=== PATIENT | female | born 1975 | race Hispanic/Latino ===

== ENCOUNTER 2019-07-08 12:57 | Emergency (ER) | payer BC ==
[2019-07-08] MEDS ORDERED: SILVER NITRATE 1 APPL TOP ONE (13:44)
[2019-07-08] MEDS ORDERED: LIDOCAINE 1% W/EPI 1:100,000 MDV 20 ML VIAL ONE (13:44)
--- NOTE | 2019-07-08 15:45 | EDPHYS ---
Physician Documentation [facility] Name: Yoli Hunt Age: 44 yrs Sex: Female : 1975 Arrival Date: 07/08/2019 Time: 13:00 Bed 17 Private MD: BRITTANEY Physician Camden Toscano HPI: 07/08 13:42 This 44 yrs old Female presents to ER via Ambulatory with complaints of Wart bhanu on Finger, painful. 13:42 The patient or guardian reports decreased range of motion, pain. The complaints affect bhanu the PIP of left ring finger. Onset: The symptoms/episode began/occurred 1 week(s) ago. Associated signs and symptoms: The patient has no apparent associated signs or symptoms. The patient has not experienced similar symptoms in the past. 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 - Social history:: Smoking status: Patient/guardian denies using tobacco. - Ebola Screening: : No symptoms or risks identified at this time. - Family history:: not pertinent. ROS: 13:42 Constitutional: Negative for fever, chills, and weight loss, Eyes: Negative for injury, bhanu pain, redness, and discharge, ENT: Negative for injury, pain, and discharge, Neck: Negative for injury, pain, and swelling, Cardiovascular: Negative for chest pain, palpitations, and edema, Respiratory: Negative for shortness of breath, cough, wheezing, and pleuritic chest pain, Abdomen/GI: Negative for abdominal pain, nausea, vomiting, diarrhea, and constipation, Back: Negative for injury and pain, : Negative for injury, bleeding, discharge, and swelling, Skin: Negative for injury, rash, and discoloration, Neuro: Negative for headache, weakness, numbness, tingling, and seizure, Psych: Negative for depression, anxiety, suicide ideation, homicidal ideation, and hallucinations, Allergy/Immunology: Negative for hives, rash, and allergies, Endocrine: Negative for neck swelling, polydipsia, polyuria, polyphagia, and marked weight changes, Hematologic/Lymphatic: Negative for swollen nodes, abnormal bleeding, and unusual bruising. 13:42 MS/extremity: Positive for pain, tenderness, of the palmar aspect of middle phalanx of left middle finger. Exam: 13:42 Constitutional: This is a well developed, well nourished patient who is awake, alert, bhanu and in no acute distress. Head/Face: Normocephalic, atraumatic. Eyes: Pupils equal round and reactive to light, extra-ocular motions intact. Lids and lashes normal. Conjunctiva and sclera are non-icteric and not injected. Cornea within normal limits. Periorbital areas with no swelling, redness, or edema. ENT: Nares patent. No nasal discharge, no septal abnormalities noted. Tympanic membranes are normal and external auditory canals are clear. Oropharynx with no redness, swelling, or masses, exudates, or evidence of obstruction, uvula midline. Mucous membranes moist. Neck: Trachea midline, no thyromegaly or masses palpated, and no cervical lymphadenopathy. Supple, full range of motion without nuchal rigidity, or vertebral point tenderness. No Meningismus. Chest/axilla: Normal chest wall appearance and motion. Nontender with no deformity. No lesions are appreciated. Cardiovascular: Regular rate and rhythm with a normal S1 and S2. No gallops, murmurs, or rubs. Normal PMI, no JVD. No pulse deficits. Respiratory: Lungs have equal breath sounds bilaterally, clear to auscultation and percussion. No rales, rhonchi or wheezes noted. No increased work of breathing, no retractions or nasal flaring. Abdomen/GI: Soft, non-tender, with normal bowel sounds. No distension or tympany. No guarding or rebound. No evidence of tenderness throughout. Back: No spinal tenderness. No costovertebral tenderness. Full range of motion. Pelvic Exam: Normal external genitalia. Speculum exam with closed cervical os, no discharge or bleeding noted. Bimanual exam with normal adnexa, no adnexal or cervical motion tenderness. Normal uterus. Female : Normal external genitalia. Skin: Warm, dry with normal turgor. Normal color with no rashes, no lesions, and no evidence of cellulitis. Neuro: Awake and alert, GCS 15, oriented to person, place, time, and situation. Cranial nerves II-XII grossly intact. Motor strength 5/5 in all extremities. Sensory grossly intact. Cerebellar exam normal. Normal gait. Psych: Awake, alert, with orientation to person, place and time. Behavior, mood, and affect are within normal limits. 13:42 Musculoskeletal/extremity: Circulation is intact in all extremities. Sensation intact. Compartment Syndrome exam of affected extremity: is normal. DVT Exam: negative Homans' sign noted on exam, no appreciated bluish discoloration, no erythema, no increased warmth, pain, swelling, tenderness. Vital Signs: 13:12 BP 123 / 78; Pulse 101; Resp 19 S; Temp 97.7(O); Pulse Ox 100% on R/A; Pain 0/10; jl7 14:44 BP 112 / 78; Pulse 94; Resp 16; Temp 98.0(O); Pulse Ox 100% on R/A; mh5 MDM: 13:15 Patient medically screened. [facility] 13:42 Data reviewed: vital signs. [facility] 07/08 14:34 Order name: Hand Left 3 View XRAY; Complete Time: 16:38 [facility] 07/08 13:42 Order name: Suture Tray Setup; Complete Time: 13:55 [facility] 07/08 13:42 Order name: Wound dressing; Complete Time: 16:42 [facility] Administered Medications: 15:50 Drug: Lidocaine-Epinephrine -1%: (1:100,000) 5 ml Volume: 20 ml; Route: Infiltration; ph 16:10 Drug: Silver Nitrate Applicators 1 application Route: Topical; Site: affected area; ph 16:42 Drug: KeFLEX 500 mg Route: PO; ph 16:44 Follow up: Response: No adverse reaction ph 16:43 Drug: [place] 10 mg-325 mg 1 tabs Route: PO; ph 16:44 Follow up: Response: No adverse reaction; Medication administered at discharge. ph 16:44 Drug: Zofran 4 mg Route: PO; ph 16:44 Follow up: Response: No adverse reaction; Medication administered at discharge. ph Disposition: 07/08/19 15:44 Discharged to Home. Impression: Laceration without foreign body of left hand, Pyogenic granuloma. - Condition is Stable. - Discharge Instructions: Laceration Care, Adult, Laceration Care, Adult, [id number]. - Prescriptions for Keflex 500 mg Oral Capsule - take 1 capsule by ORAL route every 6 hours for 10 days; 28 capsule. Tylenol- Codeine #3 300-30 mg Oral Tablet - take 2 tablets by ORAL route every 6 hours As needed; 20 tablet. - Medication Reconciliation Form, Thank You Letter, Antibiotic Education, Prescription Opioid Use form. - Follow up: Private Physician; When: 2 - 3 days; Reason: Recheck today's complaints, Continuance of care, Re-evaluation by your physician. Follow up: Iraj Bridges; When: 2 - 3 days; Reason: Recheck today's complaints, Continuance of care, Re-evaluation by your physician. - Problem is new. - Symptoms have improved. Addendum: 07/29/2019 02:34 Addendum: left ring prepped and dressed. lidocaine with epi 4 cc was injected at the c magdaleno base of the growth. an 11 blade was used to remove the growth.silver nitrate sticks were used to cauterize the base. good hemostasis,good outcome. dressing applied. follow up instructions. Signatures: Dispatcher [employer] EDMS Camden Toscano MD MD cha Hall, Patricia, RN RN Mimi Scott RN RN jl7 Corrections: (The following items were deleted from the chart) 07/08 16:45 15:44 07/08/2019 15:44 Discharged to Home. Impression: Laceration without foreign body ph of left hand; Pyogenic granuloma. Condition is Stable. Discharge Instructions: Laceration Care, Adult, Laceration Care, Adult, [id number]. Prescriptions for Keflex 500 mg Oral Capsule - take 1 capsule by ORAL route every 6 hours for 10 days; 28 capsule, Tylenol-Codeine #3 300-30 mg Oral Tablet - take 2 tablets by ORAL route every 6 hours As needed; 20 tablet. and Forms are Medication Reconciliation Form, Thank You Letter, Antibiotic Education, Prescription Opioid Use. Follow up: Private Physician; When: 2 - 3 days; Reason: Recheck today's complaints, Continuance of care, Re-evaluation by your physician. Follow up: Iraj Bridges; When: 2 - 3 days; Reason: Recheck today's complaints, Continuance of care, Re-evaluation by your physician. Problem is new. Symptoms have improved. bhanu
--- NOTE | 2019-07-08 15:45 | RAD REPORT ---
EXAM DESCRIPTION: RAD - Hand Left 3 View - 07/08/2019 3:06 pm CLINICAL HISTORY: Hand pain, soft tissue mass COMPARISON: None. FINDINGS: No fracture, dislocation or periosteal reaction noted. No acute bone or joint finding seen . Patient has a 10 millimeter oval noncalcified soft tissue mass in the soft tissues along the ventra l and radial side of the third digit middle phalanx level. IMPRESSION: Third digit soft tissue masses detailed. No acute bone or joint finding.
--- NOTE | 2019-07-08 15:45 | ER ---
Nurse's Notes [facility] Name: Yoli Hunt Age: 44 yrs Sex: Female : 1975 Arrival Date: 07/08/2019 Time: 13:00 Bed 17 Private MD: Diagnosis: Laceration without foreign body of left hand;Pyogenic granuloma Presentation: 07/08 13:04 Presenting complaint: Child states: Wart on left ring finger started 2 weeks ago, jl7 started grown 2 days ago, denies pain, reports "It smells nasty.". Transition of care: patient was not received from another setting of care. Onset of symptoms was June 23, 2019. Risk Assessment: Do you want to hurt yourself or someone else? Patient reports no desire to harm self or others. Initial Sepsis Screen: Does the patient meet any 2 criteria? No. Patient's initial sepsis screen is negative. Does the patient have a suspected source of infection? No. Patient's initial sepsis screen is negative. Care prior to arrival: None. 13:04 Method Of Arrival: Ambulatory [facility] 13:04 Acuity: NISHA 4 jl7 Triage Assessment: 13:12 General: Appears in no apparent distress. uncomfortable, Behavior is calm, cooperative, jl7 appropriate for age. Pain: Denies pain. 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 - Social history:: Smoking status: Patient/guardian denies using tobacco. - Ebola Screening: : No symptoms or risks identified at this time. - Family history:: not pertinent. Screenin:18 Abuse screen: Denies threats or abuse. Denies injuries from another. Nutritional ph screening: No deficits noted. Tuberculosis screening: No symptoms or risk factors identified. Fall Risk None identified. Assessment: 14:00 General: Appears in no apparent distress. comfortable, well groomed, Behavior is calm, ph cooperative, appropriate for age. Pain: Complains of pain in palmar aspect of middle phalanx of left middle finger. Neuro: Level of Consciousness is awake, alert, obeys commands, Oriented to person, place, time, situation. Cardiovascular: Capillary refill < 3 seconds in bilateral fingers Patient's skin is warm and dry. Respiratory: Airway is patent Respiratory effort is even, unlabored, Respiratory pattern is regular, symmetrical. Derm: Skin is fragile, Skin is pink, warm \\T\\ dry. 14:00 Derm: growth noted to L ring finger. Musculoskeletal: Circulation, motion, and ph sensation intact. Range of motion: intact in all extremities. 15:00 Reassessment: Patient appears in no apparent distress at this time. Patient and/or ph family updated on plan of care and expected duration. Pain level reassessed. Patient is alert, oriented x 3, equal unlabored respirations, skin warm/dry/pink. 15:50 Reassessment: Patient appears in no apparent distress at this time. Patient and/or ph family updated on plan of care and expected duration. Pain level reassessed. Patient is alert, oriented x 3, equal unlabored respirations, skin warm/dry/pink. ERP at bedside for excision of growth finger, will send to lab for patho, pt tolerating well. Vital Signs: 13:12 BP 123 / 78; Pulse 101; Resp 19 S; Temp 97.7(O); Pulse Ox 100% on R/A; Pain 0/10; jl7 14:44 BP 112 / 78; Pulse 94; Resp 16; Temp 98.0(O); Pulse Ox 100% on R/A; mh5 ED Course: 13:00 Patient arrived in ED. mr 13:08 Triage completed. jl7 13:12 Arm band placed on right wrist. jl7 13:15 Camden Toscano MD is Attending Physician. bhanu 13:54 Key Wetzel, MARY is Primary Nurse. ph 14:44 Patient has correct armband on for positive identification. Bed in low position. Call 5 light in reach. Side rails up X 1. Adult w/ patient. Warm blanket given. Pulse ox on. NIBP on. 15:05 Hand Left 3 View XRAY In Process Unspecified. EDMS 15:44 Iraj Bridges MD is Referral Physician. [facility] 16:18 No provider procedures requiring assistance completed. Patient did not have IV access ph during this emergency room visit. 16:30 Wound care: to growth removed from L ring finger, bleeding controlled, pressure ph dressing applied. Administered Medications: 15:50 Drug: Lidocaine-Epinephrine -1%: (1:100,000) 5 ml Volume: 20 ml; Route: Infiltration; ph 16:10 Drug: Silver Nitrate Applicators 1 application Route: Topical; Site: affected area; ph 16:42 Drug: KeFLEX 500 mg Route: PO; ph 16:44 Follow up: Response: No adverse reaction ph 16:43 Drug: [place] 10 mg-325 mg 1 tabs Route: PO; ph 16:44 Follow up: Response: No adverse reaction; Medication administered at discharge. ph 16:44 Drug: Zofran 4 mg Route: PO; ph 16:44 Follow up: Response: No adverse reaction; Medication administered at discharge. ph Outcome: 15:44 Discharge ordered by . [facility] 16:45 Patient left the ED. ph 16:45 Discharged to home ambulatory, with family. ph 16:45 Condition: good 16:45 Discharge instructions given to patient, Instructed on discharge instructions, follow up and referral plans. medication usage, wound care, Demonstrated understanding of instructions, follow-up care, medications, wound care, Prescriptions given X 2. Signatures: Dispatcher [employer] EDRI Camden Toscano MD MD cha Rivera, Augusta Key Wetzel RN RN ph Martinez, Maria [facility] Mimi Monae RN RN jl7
[2019-07-08] MEDS ORDERED: CEPHALEXIN 250 MG CAP ONE (16:25)
[2019-07-08] MEDS ORDERED: HYDROCODONE/APAP 10/325 TAB ONE (16:41)
[2019-07-08] MEDS ORDERED: ONDANSETRON 4 MG (ODT) TAB ONE (16:41)
[2019-07-08 18:52] VITALS: O2SAT 100
[2019-07-08 18:57] VITALS: BP 128/84; TEMP 98.6
== END 2019-07-08 16:45 | disposition home or self-care (01) ==
LOC: ER 12:57
PROC: 0HBGXZZ Excision of Left Hand Skin, External Approach (ICD-10-PCS; principal; 2019-07-08)
DX: L98.0 Pyogenic granuloma (principal); S61.412A Laceration without foreign body of left hand, initial encounter; X58.XXXA Exposure to other specified factors, initial encounter; Z94.1 Heart transplant status
CPT/HCPCS: 88305; 99284

== ENCOUNTER 2019-09-04 18:13 | Emergency (ER) | payer BC ==
[2019-09-04 19:29] LABS: Absolute Lymphocytes (CBC) 1.1 K/uL (0.7-4.9); Basophils % 0.3 % (0-1.3); Lymphocytes % 17.7 % (15.3-44.8); MPV 8.5 fL (7.6-11.3)
[2019-09-04 19:44] LABS: Potassium 3.4 mmol/L (3.5-5.1)
--- NOTE | 2019-09-04 20:23 | EDPHYS ---
Physician Documentation [facility] Name: Yoli Hunt Age: 44 yrs Sex: Female : 1975 Arrival Date: 09/04/2019 Time: 18:16 Bed 13 Private MD: ED Physician Ceasar Stanley HPI: 09/03 19:24 This 44 yrs old Female presents to ER via Ambulatory with complaints of rn Shortness Of Breath. 19:24 The patient has shortness of breath at rest. Onset: The symptoms/episode began/occurred rn 2 month(s) ago. Duration: The symptoms are intermittent. The patient's shortness of breath is aggravated by nothing, is alleviated by nothing. Severity of symptoms: At their worst the symptoms were mild in the emergency department the symptoms have resolved. The patient has experienced similar episodes in the past. Reports 2-3 months of intermittent episodes of "anxiety" and "depression", went through divorce and heart transplant during same time recently, and since then, not sleeping, feels sad, cries randomly, no appetite. No suicidal ideation. Denies chest pain/abd pain/vomiting/diarrhea. Currently asymptomatic. Came in tonight because felt worse tonight, now resolved. . 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 ca1 Historical: - Allergies: 18:29 allergic to 4 unknown medications; ca1 18:29 Amiodarone; ca1 18:29 citalopram; ca1 18:29 Duloxetine; ca1 18:29 pregabalin; ca1 - Home Meds: 18:37 aspirin 81 mg Oral chew 1 tab once daily [Active]; Calcium Carbonate Oral [Active]; ca1 cholecalciferol (vitamin D3) oral oral [Active]; famotidine 20 mg Oral tab 1 tab every 12 hours [Active]; gabapentin 300 mg oral cap 1 cap nightly [Active]; magnesium oxide 400 mg oral tab [Active]; pravastatin 20 mg oral tab 1 tab once daily [Active]; CellCept 500 mg Oral tab 3 tabs 2 times per day [Active]; Lantus 100 unit/mL Sub-Q soln [Active]; Humalog KwikPen 200 unit/mL (3 mL) subcutaneous inpn [Active]; melatonin Oral [Active]; prednisone miscellaneous powd 2.5 tab daily [Active]; - PMHx: 18:29 heart transplant pt, [facility] in [place], Feb 2019; ca1 - PSHx: 18:29 heart transplant; ca1 - Immunization history:: Adult Immunizations up to date, Flu vaccine is not up to date. - Social history:: Smoking status: Patient denies any tobacco usage or history of. - Family history:: not pertinent. - Hospitalizations: : No recent hospitalization is reported. ROS: 19:24 Constitutional: Negative for fever, chills, and weight loss, Eyes: Negative for injury, rn pain, redness, and discharge, Neck: Negative for injury, pain, and swelling, Cardiovascular: Negative for chest pain, palpitations, and edema, Respiratory: Negative for shortness of breath, cough, wheezing, and pleuritic chest pain, Abdomen/GI: Negative for abdominal pain, nausea, vomiting, diarrhea, and constipation, MS/Extremity: Negative for injury and deformity, Skin: Negative for injury, rash, and discoloration, Neuro: Negative for headache, weakness, numbness, tingling, and seizure. Exam: 19:24 Constitutional: This is a well developed, well nourished patient who is awake, alert, rn and in no acute distress. Head/Face: Normocephalic, atraumatic. Eyes: Pupils equal round and reactive to light, extra-ocular motions intact. Lids and lashes normal. Conjunctiva and sclera are non-icteric and not injected. Cornea within normal limits. Periorbital areas with no swelling, redness, or edema. ENT: MMM Cardiovascular: Regular rate and rhythm. No pulse deficits. Respiratory: Equal bilateral breath sounds. No increased work of breathing, no retractions or nasal flaring. Abdomen/GI: soft, non-tender MS/ Extremity: Pulses equal, no cyanosis. Neurovascular intact. Full, normal range of motion. Equal circumference. Neuro: Awake and alert, GCS 15, oriented to person, place, time, and situation. Cranial nerves II-XII grossly intact. Motor strength 5/5 in all extremities. Sensory grossly intact. Cerebellar exam normal. Psych: Awake, alert, with orientation to person, place and time. Depressed mood, becomes emotional when talking about divorce. Vital Signs: 18:19 BP 132 / 88; Pulse 104; Resp 18 S; Temp 97.3(TE); Pulse Ox 100% on R/A; Weight 75.75 kg ca1 (R); Height 5 ft. 5 in. (165.10 cm) (R); 19:30 BP 106 / 76; Pulse 92; Resp 18; Pulse Ox 99% on R/A; wh 20:30 BP 107 / 77; Pulse 87; Resp 18; Pulse Ox 100% on R/A; wh 18:19 Body Mass Index 27.79 (75.75 kg, 165.10 cm) ca1 MDM: 19:02 Patient medically screened. rn 20:20 Differential diagnosis: anxiety, depression, major depressive episode. Data reviewed: rn vital signs, nurses notes, lab test result(s), EKG, radiologic studies, plain films, and as a result, I will discharge patient. Counseling: I had a detailed discussion with the patient and/or guardian regarding: the historical points, exam findings, and any diagnostic results supporting the discharge/admit diagnosis, lab results, radiology results, the need for outpatient follow up, to return to the emergency department if symptoms worsen or persist or if there are any questions or concerns that arise at home. Special discussion: I discussed with the patient/guardian in detail that at this point there is no indication for admission to the hospital. It is understood, however, that if the symptoms persist or worsen the patient needs to return immediately for re-evaluation. Based on the history and exam findings, there is no indication for further emergent testing or inpatient evaluation. 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 I discussed with the patient/guardian the need to see the primary care provider for further evaluation of the symptoms. I discussed with the patient/guardian the need to see the psychiatrist for further evaluation of the symptoms. ED course: No acute findings related to heart/lungs, no oxygen requirement, seems like major depressive episode from divorce and transplant, does not seem related to transplant. Recommend psychiatry and cardiology f/u for medication given transplant status. . 09/03 19:11 Order name: CBC with Diff; Complete Time: 19:48 rn 09/03 19:11 Order name: Basic Metabolic Panel; Complete Time: 19:48 rn 09/03 19:11 Order name: IV Start; Complete Time: 19:19 rn 09/03 19:11 Order name: XRAY Chest (1 view) rn 09/03 19:11 Order name: EKG; Complete Time: 19:12 rn 09/03 20:33 Order name: Urine Dipstick--Ancillary (enter results) mw2 09/03 19:11 Order name: EKG - Nurse/Tech; Complete Time: 19:20 rn 09/03 19:11 Order name: Urine Dipstick-Ancillary (obtain specimen); Complete Time: 20:32 rn Administered Medications: No medications were administered Disposition: 09/04/19 20:22 Discharged to Home. Impression: Major depressive disorder, single episode, unspecified. - Condition is Stable. - Discharge Instructions: Generalized Anxiety Disorder, Major Depressive Disorder. - Medication Reconciliation Form, Thank You Letter, Antibiotic Education, Prescription Opioid Use form. - Follow up: Private Physician; When: As needed; Reason: Recheck today's complaints, Re-evaluation by your physician. - Problem is an ongoing problem. - Symptoms are unchanged. Signatures: Dispatcher [employer] EDMS Ceasar Stanley MD MD rn Habalo, Winsy Drea Fried RN RN ca1 Corrections: (The following items were deleted from the chart) 20:45 20:22 09/04/2019 20:22 Discharged to Home. Impression: Major depressive disorder, wh single episode, unspecified. Condition is Stable. Forms are Medication Reconciliation Form, Thank You Letter, Antibiotic Education, Prescription Opioid Use. Follow up: Private Physician; When: As needed; Reason: Recheck today's complaints, Re-evaluation by your physician. Problem is an ongoing problem. Symptoms are unchanged. rn
--- NOTE | 2019-09-04 20:23 | ER ---
Nurse's Notes [facility] Name: Yoli Hunt Age: 44 yrs Sex: Female : 1975 Arrival Date: 09/04/2019 Time: 18:16 Bed 13 Private MD: Diagnosis: Major depressive disorder, single episode, unspecified Presentation: 09/03 18:19 Chief complaint: Niece states, "She feels anxious since 2 hours ago. It's been going on ca1 and off for a few days. Feels relax one moment then suddenly feels anxious and is catching her breath, feels like crying. She had a heart transplant in February 2019. She also says she's been having a hard time sleeping". Denies cough, congestion, chest pains, fever. Coronavirus screen: The patient has NOT traveled to [place] in the past 14 days. The patient has NOT had contact with known and/or suspected case of Coronavirus. Ebola Screen: Patient negative for fever greater than or equal to 101.5 degrees Fahrenheit, and additional compatible Ebola Virus Disease symptoms Patient denies exposure to infectious person. Patient denies travel to an Ebola-affected area in the 21 days before illness onset. No symptoms or risks identified at this time. Initial Sepsis Screen: Does the patient meet any 2 criteria? No. Patient's initial sepsis screen is negative. Does the patient have a suspected source of infection? No. Patient's initial sepsis screen is negative. Risk Assessment: Do you want to hurt yourself or someone else? Patient reports no desire to harm self or others. Onset of symptoms was September 04, 2019. 18:19 Method Of Arrival: Ambulatory ca1 18:19 Acuity: NISHA 3 ca1 Triage Assessment: 18:29 General: Appears in no apparent distress. comfortable. Respiratory: Airway is patent ca1 Respiratory effort is even, unlabored, Respiratory pattern is regular, symmetrical. 19:30 Respiratory: Reports shortness of breath Onset: The symptoms/episode began/occurred wh gradually, the patient reports symptoms have resolved. 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 ca1 Historical: - Allergies: 18:29 allergic to 4 unknown medications; ca1 18:29 Amiodarone; ca1 18:29 citalopram; ca1 18:29 Duloxetine; ca1 18:29 pregabalin; ca1 - Home Meds: 18:37 aspirin 81 mg Oral chew 1 tab once daily [Active]; Calcium Carbonate Oral [Active]; ca1 cholecalciferol (vitamin D3) oral oral [Active]; famotidine 20 mg Oral tab 1 tab every 12 hours [Active]; gabapentin 300 mg oral cap 1 cap nightly [Active]; magnesium oxide 400 mg oral tab [Active]; pravastatin 20 mg oral tab 1 tab once daily [Active]; CellCept 500 mg Oral tab 3 tabs 2 times per day [Active]; Lantus 100 unit/mL Sub-Q soln [Active]; Humalog KwikPen 200 unit/mL (3 mL) subcutaneous inpn [Active]; melatonin Oral [Active]; prednisone miscellaneous powd 2.5 tab daily [Active]; - PMHx: 18:29 heart transplant pt, [facility] in [place], Feb 2019; ca1 - PSHx: 18:29 heart transplant; ca1 - Immunization history:: Adult Immunizations up to date, Flu vaccine is not up to date. - Social history:: Smoking status: Patient denies any tobacco usage or history of. - Family history:: not pertinent. - Hospitalizations: : No recent hospitalization is reported. Screenin:30 Abuse screen: Denies threats or abuse. Denies injuries from another. Nutritional wh screening: No deficits noted. Tuberculosis screening: No symptoms or risk factors identified. Fall Risk None identified. Assessment: 19:15 General: Appears in no apparent distress. Behavior is cooperative, appropriate for age, wh anxious. Pain: Denies pain. Neuro: Level of Consciousness is awake, alert, obeys commands, Oriented to person, place, time, situation, Appropriate for age. Cardiovascular: Heart tones S1 S2 Rhythm is regular. Respiratory: Airway is patent Respiratory effort is even, unlabored, Respiratory pattern is regular, symmetrical, Breath sounds are clear bilaterally. GI: Abdomen is flat, non-distended. : No signs and/or symptoms were reported regarding the genitourinary system. EENT: No signs and/or symptoms were reported regarding the EENT system. Derm: Skin is intact, is healthy with good turgor, Skin is pink, warm \\T\\ dry. normal. Musculoskeletal: Circulation, motion, and sensation intact. 20:30 Reassessment: Patient appears in no apparent distress at this time. No changes from wh previously documented assessment. Patient and/or family updated on plan of care and expected duration. Pain level reassessed. Patient is alert, oriented x 3, equal unlabored respirations, skin warm/dry/pink. Vital Signs: 18:19 BP 132 / 88; Pulse 104; Resp 18 S; Temp 97.3(TE); Pulse Ox 100% on R/A; Weight 75.75 kg ca1 (R); Height 5 ft. 5 in. (165.10 cm) (R); 19:30 BP 106 / 76; Pulse 92; Resp 18; Pulse Ox 99% on R/A; wh 20:30 BP 107 / 77; Pulse 87; Resp 18; Pulse Ox 100% on R/A; wh 18:19 Body Mass Index 27.79 (75.75 kg, 165.10 cm) ca1 ED Course: 18:16 Patient arrived in ED. mr 18:27 Triage completed. ca1 18:29 Arm band placed on right wrist. [facility] 19:02 Ceasar Stanley MD is Attending Physician. rn 19:12 Mai Hernandez is Primary Nurse. 19:15 No provider procedures requiring assistance completed. Inserted saline lock: 20 gauge wh in right antecubital area, using aseptic technique. Blood collected. 19:25 Patient has correct armband on for positive identification. Placed in gown. Bed in low wh position. Call light in reach. Side rails up X 1. Pulse ox on. NIBP on. 19:47 XRAY Chest (1 view) In Process Unspecified. EDOK 20:43 IV discontinued, intact, bleeding controlled, No redness/swelling at site. Administered Medications: No medications were administered Outcome: 20:22 Discharge ordered by . rn 20:44 Discharged to home ambulatory, with family. 20:44 Condition: stable 20:44 Discharge instructions given to patient, family, Instructed on discharge instructions, follow up and referral plans. POC Demonstrated understanding of instructions, follow-up care, POC 20:45 Patient left the ED. Signatures: Dispatcher [employer] Augusta Mccurdy mr Ceasar Stanley MD MD rn [place], Winsy Drea Fried RN RN ca1
[2019-09-04 20:43] LABS: Urine Blood 3+ (NEG); Urine Glucose NEGATIVE (NEG); Urine Protein NEGATIVE (NEG); Urine pH 6.5 (5.0-7.0)
--- NOTE | 2019-09-04 20:52 | RAD REPORT ---
EXAM DESCRIPTION: RAD - Chest Single View - 09/04/2019 7:47 pm CLINICAL HISTORY: anxiety, intermittent sob, hx of heart transplant COMPARISON: No comparisons TECHNIQUE: AP portable chest image was obtained 09/04/2019 7:47 pm . FINDINGS: Lungs are clear. Heart and vasculature are normal. No measurable pleural effusion and no p neumothorax. No acute bony abnormality seen. Sternotomy wires in place. No acute aortic findings susp ected. IMPRESSION: No acute cardiopulmonary process.
[2019-09-04 21:58] VITALS: TEMP 97.3
[2019-09-04 22:02] VITALS: BP 107/77; O2SAT 100
--- NOTE | 2019-09-05 12:22 | EKG ---
Test Date: 2019-09-04 Test Time: 19:19:35 Template Checker: PATRICIO MEASUREMENT RESULTS: Intervals: Rate: 94 MO: 128 QRSD: 104 QT: 376 QTc: 470 [place]: P: 72 MO: 128 QRS: 80 T: 32 INTERPRETIVE STATEMENTS: Normal sinus rhythm Incomplete right bundle branch block Cannot rule out Anterior infarct, age undetermined Abnormal ECG No previous ECG available for comparison Electronically Signed On 09-05-19 12:21:24 CARPENTER SUPERVISOR by Wil Butts
== END 2019-09-04 20:45 | disposition home or self-care (01) ==
LOC: ER 18:13
DX: F32.9 Major depressive disorder, single episode, unspecified (principal); Z88.8 Allergy status to other drugs, medicaments and biological substances; Z94.1 Heart transplant status
CPT/HCPCS: 36415; 71045; 80048; 81003; 85025; 93005; 99284

== ENCOUNTER 2022-06-04 22:52 | Emergency (ER) | payer BC, OTHER ==
[2022-06-04] MEDS ORDERED: ACETAMINOPHEN 500 MG TAB ONE (23:43)
[2022-06-04] MEDS ORDERED: HYDROCODONE/CHLORPHEN 5 ML/OSYR ONE (23:49)
[2022-06-05 00:20] LABS: SARS-COV-2 RT PCR NEGATIVE (NEGATIVE)
--- NOTE | 2022-06-05 00:31 | EDPHYS ---
Physician Documentation [facility] Name: Yoli Hunt Age: 47 yrs Sex: Female : 1975 Arrival Date: 06/04/2022 Time: 22:55 Bed 7 Private MD: ED Physician Howard Lopez HPI: 06/04 23:18 This 47 yrs old Female presents to ER via Ambulatory with complaints of pm1 Weakness. 23:18 The patient or guardian reports cough, with no sputum. Onset: The symptoms/episode pm1 began/occurred today. Severity of symptoms: in the emergency department the symptoms are unchanged. Modifying factors: The symptoms are alleviated by nothing, the symptoms are aggravated by nothing. Associated signs and symptoms: Pertinent positives: body aches, subjective fever, Pertinent negatives: ear ache, sore throat. The patient has not experienced similar symptoms in the past. The patient has not recently seen a physician. 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 in [place], Feb 2019; as6 - Immunization history:: Client reports receiving the 2nd dose of the Covid vaccine, pfizer Flu vaccine is not up to date. - Social history:: Smoking status: Patient denies any tobacco usage or history of. ROS: 23:18 Eyes: Negative for injury, pain, redness, and discharge, ENT: Negative for injury, pm1 pain, and discharge, Neck: Negative for injury, pain, and swelling, Cardiovascular: Negative for chest pain, palpitations, and edema. 23:18 Abdomen/GI: Negative for abdominal pain, nausea, vomiting, diarrhea, and constipation, Back: Negative for injury and pain, MS/Extremity: Negative for injury and deformity, Skin: Negative for injury, rash, and discoloration. 23:18 Constitutional: Positive for body aches, fever. 23:18 Respiratory: Positive for cough, Negative for shortness of breath, sputum production, wheezing. 23:18 Neuro: Positive for generalized weakness. Exam: 23:18 Constitutional: This is a well developed, well nourished patient who is awake, alert, pm1 and in no acute distress. Head/Face: Normocephalic, atraumatic. 23:18 Back: No spinal tenderness. No costovertebral tenderness. Full range of motion. Skin: Warm, dry with normal turgor. Normal color with no rashes, no lesions, and no evidence of cellulitis. MS/ Extremity: Pulses equal, no cyanosis. Neurovascular intact. Full, normal range of motion. 23:18 Eyes: Exam is negative for acute changes, Extraocular movements: no acute changes, Conjunctiva: no acute changes, no injection. 23:18 Cardiovascular: Exam negative for acute changes, Rate: normal, Rhythm: regular, Pulses: no pulse deficits are appreciated. 23:18 Respiratory: Exam negative for acute changes, respiratory distress, shortness of breath, Breath sounds: are clear throughout. 23:18 Neuro: Exam negative for acute changes, Orientation: is normal, Mentation: is normal, Motor: is normal, moves all fours. Vital Signs: 23:06 BP 123 / 79; Pulse 111; Resp 18 S; Temp 99.3(O); Pulse Ox 98% on R/A; Weight 77.11 kg as6 (R); Height 5 ft. 5 in. (165.10 cm) (R); Pain 8/10; / 00:43 BP 118 / 68; Pulse 81; Resp 16; Temp 98(O); Pulse Ox 99% on R/A; kl 06/04 23:06 Body Mass Index 28.29 (77.11 kg, 165.10 cm) as6 MDM: 06/04 23:13 Patient medically screened. pm1 06/05 00:29 Data reviewed: vital signs. Data interpreted: Pulse oximetry: on room air is 98 %. pm1 Interpretation: normal. Counseling: I had a detailed discussion with the patient and/or guardian regarding: the historical points, exam findings, and any diagnostic results supporting the discharge/admit diagnosis, lab results, the need for outpatient follow up, to return to the emergency department if symptoms worsen or persist or if there are any questions or concerns that arise at home. 06/04 23:12 Order name: COVID-19/FLU A+B; Complete Time: 00:28 as6 Administered Medications: 06/04 23:48 Drug: Tussionex Pennkinetic ER (chlorpheniramine-hydrocodone) Suspension 5 ml Route: PO;tw5 06/05 00:42 Follow up: Response: No adverse reaction; Marked relief of symptoms 06/04 23:49 Drug: Tylenol 1000 mg Route: PO; tw5 06/05 00:42 Follow up: Response: No adverse reaction; Marked relief of symptoms kl 00:35 Drug: Tamiflu (oseltamivir) 75 mg Route: PO; kl 00:42 Follow up: Response: No adverse reaction kl Disposition: 02:37 Co-signature as Attending Physician, Howard Lopez DO I was immediately available onsite ms3 in the emergency department for consultation in the care of the patient. Disposition Summary: 06/05/22 00:30 Discharge Ordered Location: Home pm1 Problem: new pm1 Symptoms: have improved pm1 Condition: Stable pm1 Diagnosis - Influenza due to identified novel influenza A virus pm1 Followup: pm1 - With: Emergency Department - When: As needed - Reason: Worsening of condition Followup: pm1 - With: Private Physician - When: 2 - 3 days - Reason: Recheck today's complaints, Continuance of care, Re-evaluation by your physician Discharge Instructions: - Discharge Summary Sheet pm1 - Influenza, Adult pm1 Forms: - Medication Reconciliation Form pm1 - Thank You Letter pm1 - Antibiotic Education pm1 - Prescription Opioid Use pm1 Prescriptions: - Tamiflu 75 mg Oral Capsule - take 1 tablet by ORAL route every 12 hours for 5 days; 10 tablet; Refills: 0, pm1 Product Selection Permitted - Guaifenesin AC 10-100 mg/5 mL Oral Liquid - take 10 milliliters by ORAL route every 4 hours As needed; 240 milliliter; pm1 Refills: 0, Product Selection Permitted Signatures: Dispatcher [employer] Jaja Sherman RN Connor Yeh, DENNISE LAY MIDWIFE pm1 Howard Lopez DO DO ms3 Josette Gomez tw5 Kevin Gupta RN RN as6
--- NOTE | 2022-06-05 00:31 | ER ---
Nurse's Notes [facility] Name: Yoli Hunt Age: 47 yrs Sex: Female : 1975 Arrival Date: 06/04/2022 Time: 22:55 Bed 7 Private MD: Diagnosis: Influenza due to identified novel influenza A virus Presentation: 06/04 23:06 Chief complaint: Patient's son or daughter states: "She has been having body aches, as6 fever, and weakness". Coronavirus screen: Client presents with at least one sign or symptom that may indicate coronavirus-19. Ebola Screen: No symptoms or risks identified at this time. Initial Sepsis Screen: Does the patient meet any 2 criteria? No. Patient's initial sepsis screen is negative. Does the patient have a suspected source of infection? No. Patient's initial sepsis screen is negative. Risk Assessment: Do you want to hurt yourself or someone else? Patient reports no desire to harm self or others. Onset of symptoms was June 03, 2022. 23:06 Method Of Arrival: Ambulatory as6 23:06 Acuity: NISHA 3 as6 Triage Assessment: 06/05 00:44 General: Appears comfortable, Behavior is calm, cooperative. Pain: Complains of pain in kl generalized body aches. Neuro: No deficits noted. 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 in [place], Feb 2019; as6 - Immunization history:: Client reports receiving the 2nd dose of the Covid vaccine, pfizer Flu vaccine is not up to date. - Social history:: Smoking status: Patient denies any tobacco usage or history of. Screenin/02 00:43 Abuse screen: Denies threats or abuse. Nutritional screening: No deficits noted. kl Tuberculosis screening: No symptoms or risk factors identified. Fall Risk None identified. Assessment: 06/04 23:49 General: Patient able to ambulate without difficulty to room. . Neuro: No deficits tw5 noted. Vital Signs: 23:06 BP 123 / 79; Pulse 111; Resp 18 S; Temp 99.3(O); Pulse Ox 98% on R/A; Weight 77.11 kg as6 (R); Height 5 ft. 5 in. (165.10 cm) (R); Pain 8/10; 12 00:43 BP 118 / 68; Pulse 81; Resp 16; Temp 98(O); Pulse Ox 99% on R/A; kl 06/04 23:06 Body Mass Index 28.29 (77.11 kg, 165.10 cm) as6 ED Course: 06/04 22:55 Patient arrived in ED. bp1 23:00 Connor Jennings NP is PHCP. pm1 23:00 Howard Lopez DO is Attending Physician. pm1 23:10 Triage completed. as6 23:10 Arm band placed on. as6 23:45 COVID-19/FLU A+B Sent. tw5 06/05 00:08 Sonja Abraham, RN is Primary Nurse. kd3 00:44 No provider procedures requiring assistance completed. Patient did not have IV access kl during this emergency room visit. 00:45 Patient has correct armband on for positive identification. kl Administered Medications: 06/04 23:48 Drug: Tussionex Pennkinetic ER (chlorpheniramine-hydrocodone) Suspension 5 ml Route: PO;tw5 06/05 00:42 Follow up: Response: No adverse reaction; Marked relief of symptoms 12 23:49 Drug: Tylenol 1000 mg Route: PO; tw5 12 00:42 Follow up: Response: No adverse reaction; Marked relief of symptoms kl 00:35 Drug: Tamiflu (oseltamivir) 75 mg Route: PO; kl 00:42 Follow up: Response: No adverse reaction Medication: 00:45 VIS not applicable for this client. Outcome: 00:30 Discharge ordered by . pm1 00:43 Discharged to home ambulatory, with family. 00:43 Condition: stable 00:43 Discharge instructions given to patient, family, Instructed on discharge instructions, follow up and referral plans. medication usage, Demonstrated understanding of instructions, follow-up care, medications, Prescriptions given X 2. 00:46 Patient left the ED. chloé Signatures: Jaja Rodarte RN RN Connor Monroe, DENNISE COMMUNICATIONS SCIENTIST pm1 Charmaine Herrera [facility] Josette Gomez tw5 Kevin Gupta RN RN as6 Sonja Abraham RN RN kd3
[2022-06-05] MEDS ORDERED: OSELTAMIVIR 75 MG CAP PO ONE (00:37)
[2022-06-05 00:57] VITALS: BP 118/68; TEMP 98; O2SAT 99
== END 2022-06-05 00:46 | disposition home or self-care (01) ==
LOC: ER 22:52
DX: J10.1 Influenza due to other identified influenza virus with other respiratory manifestations (principal); Z20.822 Contact with and (suspected) exposure to COVID-19; Z94.1 Heart transplant status; Z79.82 Long term (current) use of aspirin; Z88.8 Allergy status to other drugs, medicaments and biological substances
CPT/HCPCS: 0240U; 99283